=== PATIENT | male | born 1995 | race Caucasian/White ===

== ENCOUNTER 2019-12-15 17:11 | Emergency (ER) | payer OTHER, SELFPAY ==
[2019-12-15 17:21] VITALS: BP 133/73; PULSE 88; RESP 16; TEMP 36.7; O2SAT 99
--- NOTE | 2019-12-15 17:25 | ED.GENADULT ---
HPI - General Adult General Chief complaint: Ear Stated complaint: Ear Pain Time Seen by Provider: 12/15/19 17:35 Source: patient Mode of arrival: ambulatory Limitations: no limitations History of Present Illness HPI narrative: 24-year-old male patient presents to the [facility] with complaints of right ear pain that started this morning. Patient states he has had a little bit of a stuffy runny nose recently. Patient denies any fevers, body aches or chills. Denies any coughing, sore throat, shortness of breath or chest pain. Related Data Allergies Allergy/AdvReac Type Severity Reaction Status Date / Time No Known Allergies Allergy Mild Unverified 09/21/08 12:11 Review of Systems Review of Systems: Narrative: CONSTITUTIONAL: Denies fever, chills, or sweats. EYES: Denies visual changes, redness, or discharge. ENT: Denies rhinorrhea, congestion, sore throat, positive right otalgia. CARDIOVASCULAR: Denies chest pain, palpitations, or edema. RESPIRATORY: Denies cough or dyspnea. GASTROINTESTINAL: Denies abdominal pain, nausea, vomiting, or diarrhea. GENITOURINARY: Denies dysuria or hematuria. SKIN: Denies rash or itching. MUSCULOSKELETAL: Denies back pain, joint pain, or myalgia. NEUROLOGIC: Denies headache, numbness, or weakness. PSYCHIATRIC: Denies anxiety or depression. PMFSH Comments At the time of my signature I agree with nursing past medical history, surgical, social, and family history. There is no relevant family history pertinent to the presenting complaint. Exam Narrative: Exam Narrative: GENERAL: Well-appearing, well-nourished, and in no acute distress. HEAD: Normocephalic, atraumatic. EYES: PERRLA and EOMI. ENT: Nares clear, no rhinorrhea or epistaxis. Mucous membranes moist. Patient has some fluid a little bulging noted behind the right tympanic membrane. There is no erythema or foreign bodies noted to the left TM. Posterior pharynx with no erythema, tonsil enlargement, exudates or lesions present. NECK: Supple. No lymphadenopathy CHEST: Clear to auscultation. No respiratory distress. HEART: Regular rate and rhythm. No murmur heard. Normal peripheral pulses. ABDOMEN: Soft, nontender, nondistended, normal active bowel sounds. EXTREMITIES: Normal range of motion. No edema. SKIN: Warm, dry, no rash. NEURO: No focal deficits. Alert and oriented x3. Course Vital Signs Vital signs: Vital Signs Temperature 36.7 C 12/15/19 17:21 Pulse Rate 88 12/15/19 17:21 Respiratory Rate 16 12/15/19 17:21 Blood Pressure 133/73 12/15/19 17:21 Pulse Oximetry 99 12/15/19 17:21 Temperature 36.7 C 12/15/19 17:21 Pulse Rate 88 12/15/19 17:21 Respiratory Rate 16 12/15/19 17:21 Blood Pressure 133/73 12/15/19 17:21 Pulse Oximetry 99 12/15/19 17:21 Vital signs reviewed Medical Decision Making Differential Diagnosis Differential Diagnosis: Differential diagnosis: Otitis media, otitis externa, perforated TM, infection of the outer ear, foreign body or cerumen impaction, ruptured TM, acute mastoiditis, ligament otitis externa, dehydration, pneumonia, sepsis, dental or intraoral infection, TMJ dysfunction Discussed with patient it does appear that he might have a little bit of an ear infection starting in the right ear therefore we will discharge him home with some antibiotics as well as a daily antihistamine to help with the stuffy and runny nose. Discussed with patient he can take Tylenol and ibuprofen as needed for pain. Patient verbalized understanding denies any other questions or concerns at this time. Vital Signs Vital Signs: Vital Signs Temperature 36.7 C 12/15/19 17:21 Pulse Rate 88 12/15/19 17:21 Respiratory Rate 16 12/15/19 17:21 Blood Pressure 133/73 12/15/19 17:21 Pulse Oximetry 99 12/15/19 17:21 Temperature 36.7 C 12/15/19 17:21 Pulse Rate 88 12/15/19 17:21 Respiratory Rate 16 12/15/19 17:21 Blood Pressure 133/73 12/15/19 17:21 Pulse Oximetry 99
== END 2019-12-15 17:35 | disposition home or self-care (01) ==
PROVIDERS: Emergency Provider Nurse Practitioner Family
DX: H66.91 Otitis media, unspecified, right ear (principal)
CPT/HCPCS: 99213; G0463

== ENCOUNTER 2020-09-30 19:30 | Emergency (ER) | payer OTHER, SELFPAY ==
[2020-09-30 19:35] VITALS: BP 147/93; PULSE 118; RESP 20; TEMP 36.6; O2SAT 99
--- NOTE | 2020-09-30 20:47 | ED.SKABFB ---
HPI - Skin/Abscess/Foreign Bdy General Chief complaint: Skin/Abscess/Foreign Body Stated complaint: lump left inner thigh Source: patient and RN notes reviewed Mode of arrival: ambulatory History of Present Illness HPI narrative: This is a 30-year-old male that presented to urgent care with complaints of swelling, tenderness and abscess to his left groin area. Patient notes that he did not do anything at home to resolve his condition. He notes that it started off as a pimple and as the days progressed it evolved into a reddened swollen area on his groin area that started approximately 2 days ago. The patient denies SOB, CP, palpitation, extremity numbness, lightheadedness, dizziness, constipation, diarrhea, chills, or fever. He also denies any discharge or foul smell from the area MD complaint: abscess/boil Related Data Allergies Allergy/AdvReac Type Severity Reaction Status Date / Time No Known Allergies Allergy Mild Unverified 09/30/20 19:57 Review of Systems Review of Systems: A 14 organ system Review of Systems was performed and pertinent positives included in the HPI, otherwise remaining ROS is negative. [facility] Family History Family History (Updated 10/01/20 @ 07:55 by FROYLAN Mack) Other Family history non-contributory Exam Narrative: GENERAL: This is a well-nourished, well-developed patient, in no apparent distress. HEAD: normocephalic, atraumatic. EYES: PERRL. Sclera clear/white. Vision is grossly intact. EARS: External ears normal, auditory canals clear and without drainage, TMs normal without perforation. Hearing grossly intact. NOSE: External nose normal with no obvious nasal discharge, nares without redness, no rhinorrhea. THROAT: Mucous membranes moist, posterior pharynx clear. NECK: Neck supple, non-tender without lymphadenopathy, masses or thyromegaly. CARDIOVASCULAR: Regular rate and rhythm without murmurs, gallops, or rubs. RESPIRATORY: Clear to auscultation. Breath sounds equal bilaterally. No wheezes, rales, or rhonchi. GASTROINTESTINAL: Abdomen soft, non-tender, nondistended. Bowel sounds are active. No hepato-splenomegaly, or palpable masses. No guarding. SKIN: Raised elevated edematous with erythema abscess to his left groin area approximately 4 x 4 cm in length, no discharge or foul smell tender to touch NEURO: awake, alert, and oriented to person, place and time. There were no obvious focal neurologic abnormalities. Steady gait EXTREMITIES: Normal range of motion. No edema. No calf tenderness. Negative Homans sign bilaterally. BACK: Nontender without deformity or crepitance. No flank tenderness. Course Course Emergency Course: Patient will be treated for cellulitis with IV antibiotics Vital Signs Vital signs: Vital Signs Temperature 97.8 F 09/30/20 19:35 Pulse Rate 118 H 09/30/20 19:35 Respiratory Rate 20 09/30/20 19:35 Blood Pressure 147/93 H 09/30/20 19:35 Pulse Oximetry 99 09/30/20 19:35 Temperature 97.8 F 09/30/20 19:35 Pulse Rate 118 H 09/30/20 19:35 Respiratory Rate 20 09/30/20 19:35 Blood Pressure 147/93 H 09/30/20 19:35 Pulse Oximetry 99 09/30/20 19:35 Discharge Plan Discharge Clinical Impression: Cellulitis Qualifiers: Site of cellulitis of trunk: groin Abscess of skin or subcutaneous tissue Qualifiers: Site of cutaneous abscess of trunk: groin Patient Disposition: Home, Self-Care Condition: Stable Instructions: Antibiotic Form Additional Instructions: Take medications as prescribed. Follow up with Provider within 1-2 weeks. When do I need to call the doctor? Signs of infection. These include a fever of 100.4?F (38?C) or higher, chills, or wound that will not heal. Signs of wound infection. These include swelling, redness, warmth around the wound; too much pain when touched; yellowish, greenish, or bloody discharge; foul smell coming from the cut or wound site; wound site opens up; blisters form at the site. When
== END 2020-09-30 20:47 | disposition home or self-care (01) ==
PROVIDERS: Emergency Provider Nurse Practitioner
DX: L02.214 Cutaneous abscess of groin (principal); L03.314 Cellulitis of groin
CPT/HCPCS: 99213; G0463

== ENCOUNTER 2021-10-08 14:35 | Outpatient (CLI) | payer OTHER, SELFPAY ==
--- NOTE | ~2021-10-08 | MR_ITS ---
EXAMINATION: MR brain/brain stem wo/w con DATE: 10/08/2021 15:24 INDICATION: Migraine headache without aura and without status migrainosus. TECHNIQUE: Magnetic resonance imaging (MRI) of the brain and brainstem was performed without and with 20 mL MultiHance intravenous contrast. COMPARISON: None. FINDINGS: There is no intracranial hemorrhage, acute infarction, or abnormal intracranial mass lesion . There is a focus of increased T2-weighted signal intensity in the left parietal deep white matter, which is normal as an isolated finding. The ventricles are normal in size. The mastoid air cells are normal. The orbits are normal. There is mild mucosal thickening in the ethmoid sinuses. IMPRESSION: 1. Normal brain. Reviewed, dictated and finalized at location A. IMPRESSION: 1. Normal brain.
== END 2021-10-08 14:36 ==
PROVIDERS: PCP Student in an Organized Health Care Education/Training Program; Visit Provider Student in an Organized Health Care Education/Training Program
DX: G43.009 Migraine without aura, not intractable, without status migrainosus (principal)
CPT/HCPCS: 70553; A9577